=== PATIENT | male | born 1960 | race Caucasian/White ===

== ENCOUNTER 2018-02-25 10:30 | Emergency (ER) | payer OTHER ==
[2018-02-25 10:45] VITALS: BP 145/108
--- NOTE | 2018-02-25 11:36 | ED Physician Documentation ---
PD HPI HEENT - Stated complaint Stated Complaint: RT EAR PRESSURE. FEELING DIZZY. VOMITTING - Chief complaint Chief Complaint: Heent - History obtained from History obtained from: Patient - History of Present Illness Timing - onset: How many days ago (9) Timing - duration: Days (9) Timing - details: Abrupt onset, Still present Location: Right ear Improves: Medication Associated symptoms: Congestion Similar symptoms before: Diagnosis (vertigo) Recently seen: Clinic - Additional information Additional information: 57-year-old male has had some difficulty with hearing loss in his right ear and a sense of fullness. He went into see a provider at the [facility] and had his ear cleaned out of cerumen. He was given a prescription for dexamethasone for eustachian tube dysfunction and he took a half of 1 of these tablets and felt that it made him dizzy and did not take the rest of it. He has had similar episodes previously twice over the years he does not recall any progression of hearing loss associated with these prior episodes. He does have hearing loss today that he has noted associated with this episode. He has not had a cough he does have a sensation of fullness in his ear. He did have an attack of vertigo 2 nights ago that was severe enough to cause some vomiting that appears now improved but he does have persistent vertigo. Review of Systems Constitutional: denies: Fever Eyes: denies: Decreased vision Ears: reports: Loss of hearing, Ear pain, Tinnitus/ringing. denies: Drainage/ discharge Nose: reports: Congestion Throat: denies: Sore throat Cardiac: denies: Chest pain / pressure, Palpitations Respiratory: denies: Dyspnea, Cough GI: reports: Nausea, Vomiting. denies: Abdominal Pain, Constipation, Diarrhea Skin: denies: Rash Musculoskeletal: denies: Neck pain, Back pain, Extremity pain PD PAST MEDICAL HISTORY - Present Medications Home Medications: Ambulatory Orders Medication Instructions Recorded Confirmed Azithromycin [Zithromax] 250 mg PO DAILY #6 tablet 02/25/18 Loratadine/Pseudoephedrine 02/25/18 [Claritin-D 12 Hour Tablet] Meclizine HCl 25 mg PO Q6HR PRN #20 tab.chew 02/25/18 - Allergies Allergies/Adverse Reactions: Allergies Allergy/AdvReac Type Severity Reaction Status Date / Time No Known Drug Allergies Allergy Verified 02/25/18 10:45 PD ED PE NORMAL - Vitals Vital signs reviewed: Yes (Diastolic hypertension) - General General: Alert and oriented X 3, No acute distress, Well developed/nourished - HEENT HEENT: Atraumatic, PERRL, EOMI, Pharynx benign, Other (There is minimal erythema confined to the umbo and rounding of the umbo and this is not present on the left. There are 2 beats of nystagmus to the right. ) - Neck Neck: Supple, no meningeal sign, No bony TTP - Cardiac Cardiac: RRR, No murmur - Respiratory Respiratory: No respiratory distress, Clear bilaterally - Abdomen Abdomen: Soft, Non tender - Derm Derm: Normal color, Warm and dry, No rash - Extremities Extremities: No deformity, No edema - Neuro Neuro: Alert and oriented X 3, community affairs manager 2-12 intact, No motor deficit, No sensory deficit, Normal speech Eye Opening: Spontaneous Motor: Obeys Commands Verbal: Oriented GCS Score: 15 - Psych Psych: Normal mood, Normal affect Results - Vitals Vitals: Vital Signs - 24 hr 02/25/18 10:40 Temperature 36.8 C Heart Rate 70 Respiratory 18 Rate Blood Pressure 145/108 H O2 Saturation 98 Oxygen O2 Source Room air PD MEDICAL DECISION MAKING - ED course Complexity details: reviewed old records, considered differential, d/w patient ED course: 57-year-old male with acute hearing loss and a sensation of fullness in his ear as well as dizziness has minimal evidence of inflammation in his ear. He does have some nystagmus and my concern with this patient is Mnire's disease. I have asked the patient to take the dexamethasone as prescribed and I will prescribe both azithromycin and meclizine. I discussed with the patient the soft findings for infection and he does have follow-up with ENT in 2 days time at which time empiric treatment should provide relief if there is any evidence of infection. 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 Treatment of this generally is symptomatic and treatment of the dizziness is usually in the most useful. The meclizine should help with this and I recommend you take the dexamethasone that was prescribed. Follow-up with your ear nose and throat doctor as planned on Monday.
== END 2018-02-25 11:46 | disposition home or self-care (01) ==
LOC: ED 10:30
DX: H81.01 Meniere's disease, right ear (principal)
CPT/HCPCS: 99283

== ENCOUNTER 2019-02-20 16:49 | Outpatient (CLI) | payer OTHER | END 2019-02-20 16:50 | disposition EMS.NT | LOC: EMS 16:49 | PROVIDERS: ATTEND Surgery ==